=== PATIENT | male | born 1990 | race Hispanic/Latino ===

== ENCOUNTER 2019-09-16 22:56 | Emergency (ER) | payer OTHER ==
[~2019-09-16] VITALS: Ht 188 cm; Wt 127.0 kg
[2019-09-16] MEDS ORDERED: AMOXICILLIN500 MG PO (23:45)
[2019-09-16] MEDS ORDERED: CORTISPORIN-TC10 M1 RIGHT EAR (23:45)
[2019-09-16] MEDS ORDERED: NAPROSYN500 MG PO (23:45)
[2019-09-16] MEDS ORDERED: IBUPROFEN 600 MG TAB PO STA (23:53)
--- NOTE | 2019-09-16 23:59 | Emergency Department Note ---
History of Present Illnes History of Present Illness Chief Complaint: Eye, Ear, Nose, Throat, Dental History of Present Illness This is a 28 year old male . Historian: Patient Arrival Mode: Car Nurse Prn Required: No Onset (how long ago): day(s) (2 days no trauma no drainage, decreased hearing and pain no hx of DM no increased thist or polyuria) Location: right ear Quality: pain Severity: moderate Onset quality: gradual Timing of current episode: constant Progression: unchanged Chronicity: new (possible COVID 19 Exposure) Context: Denies recent illness, Denies recent surgery, Denies recent immobilization, Denies recent travel, Denies trauma/injury, Denies new medications, Denies hx of DVT/PE, Denies non-compliance w/ medications, Denies other Relieving factors: none Exacerbating factors: none Associated symptoms: Reports malaise; Denies denies other symptoms, Denies confusion, Denies chest pain, Denies cough, Denies diaphoresis, Denies fever/chills, Denies headaches, Denies loss of appetite, Denies nausea/vomiting, Denies rash, Denies seizure, Denies shortness of breath, Denies syncope, Denies weakness, Denies other Treatments prior to arrival: none Past Medical/Family History Physician Review I have reviewed the patient's past medical and family history. Any updates have been documented here. Past Medical History Recent Fever: Yes Clinical Suspicion of Infectio: Yes New/Unexplained Change in Ment: No Past Medical History: None Past Surgical History: None Social History Smoking Cessation: Never Smoker Counseling Performed: No Alcohol Use: Occasional Any Illegal Drug Use: No TB Exposure/Symptoms: No Physically hurt or threatened: No Family History Family history of heart diseas: No Other Last Tetanus: UNKNOWN Any Pre-Existing Lines (PICC,: No Is patient up to date on immun: No Last Flu: NO Last Pneumovax: NO Review of Systems Review of Systems Constitutional: Reports as per HPI, Reports malaise; Denies fever EENTM: Reports ear pain; Denies throat pain Respiratory: Denies chest congestion, Denies cough Review of other systems: All other systems negative Physical Exam Related Data Allergies: Coded Allergies: No Known Allergies (Unverified , 09/16/19) Triage Vital Signs Vital Signs Date Time Temp Pulse Resp B/P (MAP) Pulse Ox O2 Delivery O2 Flow Rate FiO2 09/16/19 23:31 100.6 99 17 161/93 99 Vital signs reviewed: Yes Physical Exam CONSTITUTIONAL Constitutional: Present well-developed, Present well-nourished HENT HENT: Present normocephalic HENT L/R: Present left TM normal, Present other (Right canal with increased swelling and redness TM dull) EYES Eyes: Reports conjunctivae normal NECK Neck: Present supple PULMONARY Pulmonary: Present breath sounds normal CARDIOVASCULAR Cardiovascular: Present regular rhythm GASTROINTESTINAL Abdominal: Present soft GENITOURINARY SKIN Skin: Present warm MUSCULOSKELETAL Musculoskeletal: Present ROM normal NEUROLOGICAL Neurological: Present alert PSYCHOLOGICAL Psychological: Present mood/affect normal Assessment & Plan Medical Decision Making MDM AOE, AOM, Dental pain, Mastoiditis, malignant otitis externa, TM rupture, cerumen impaction Assessment & Plan Final Impression: (1) Hypertension (2) Otitis externa (3) Otitis media Depart Disposition: HOME, SELF-CARE Last Vital Signs Date Time Temp Pulse Resp B/P (MAP) Pulse Ox O2 Delivery O2 Flow Rate FiO2 09/16/19 23:31 100.6 99 17 161/93 99 Home Meds Active Scripts Naproxen (NAPROSYN) 500 Mg Tablet, 500 MG PO BID for 7 Days, #14 TAB Prov:BRIDGET MICHAELS MD 09/16/19 Amoxicillin (AMOXICILLIN) 500 Mg Capsule, 1000 MG PO TID for 7 Days, #42 Prov:BRIDGET MICHAELS MD 09/16/19 Neomyc/Colist/Hydrocort/Thonzn (Cortisporin-Tc Ear Suspension) 10 Ml Drops.susp, 4 DROP RIGHT EAR QID for 7 Days, #1 BOTTLE Prov:BRIDGET MICHAELS MD 09/16/19 BRIDGET MICHAELS MD Sep 16, 2019 23:59
[2019-09-17] MEDS ORDERED: IBUPROFEN 200 MG TAB ONE
== END 2019-09-16 23:59 | disposition home or self-care (01) ==
LOC: FSED 22:56
DX: H60.91 Unspecified otitis externa, right ear (principal); H66.91 Otitis media, unspecified, right ear; I10 Essential (primary) hypertension
CPT/HCPCS: 99283

== ENCOUNTER 2022-01-30 18:16 | Emergency (ER) | payer SELFPAY ==
[~2022-01-30] VITALS: Ht 188 cm; Wt 127.0 kg
[~2022-01-30 18:16] MED LIST: AMOXICILLIN500 MG PO; CORTISPORIN-TC10 M1 RIGHT EAR; NAPROSYN500 MG PO
[2022-01-30 20:01] LABS: BASOPHILS % 0.3 % (0.0-1.0); EOSINOPHILS # (AUTO) 0.1 (0.0-0.4); HEMATOCRIT 47.7 % (38.2-49.6); HEMOGLOBIN 17.3 g/dL (14.0-18.0); LYMPHOCYTES # (AUTO) 1.5 (1.0-3.2); LYMPHOCYTES % 22.5 % (18.0-39.1); MEAN CORPUSCULAR HEMOGLOBIN 30.3 pg (28-32); MEAN CORPUSCULAR HGB CONC 36.3 g/dL (31-35); MEAN CORPUSCULAR VOLUME 83.5 fL (81-99); MONOCYTES # (AUTO) 0.6 (0.2-0.8); MONOCYTES % 8.4 % (4.4-11.3); NEUTROPHILS # (AUTO) 4.5 (2.1-6.9); NEUTROPHILS % 67.7 % (38.7-80.0); PLATELET COUNT 273 x10e3/uL (140-360); RED BLOOD COUNT 5.71 x10e6/uL (4.3-5.7); RED CELL DISTRIBUTION WIDTH 12.6 % (11.7-14.4)
[2022-01-30 20:28] LABS: INR 0.95; PROTHROMBIN TIME 13.6 seconds (11.9-14.5)
[2022-01-30 20:29] LABS: PARTIAL THROMBOPLASTIN TIME 30.9 seconds (23.8-35.5)
[2022-01-30 20:37] LABS: ALBUMIN 4.3 g/dL (3.5-5.0); ALBUMIN/GLOBULIN RATIO 1.1 (0.8-2.0); ANION GAP 15.5 mmol/L (8-16); CALCIUM 9.1 mg/dL (8.4-10.2); CREATININE, SERUM 1.03 mg/dL (0.72-1.25); POTASSIUM 3.5 mmol/L (3.5-5.1)
[2022-01-30] MEDS ORDERED: IOPAMIDOL 370 MG/ML 100 ML INFUS..BTL INJ ONE (21:22)
[2022-01-30] MEDS ORDERED: ANUSOL-HC25 MG RC (22:40)
== END 2022-01-30 23:09 | disposition home or self-care (01) ==
LOC: ER 18:24
DX: R19.7 Diarrhea, unspecified (principal); K62.5 Hemorrhage of anus and rectum; K64.8 Other hemorrhoids; R10.30 Lower abdominal pain, unspecified
CPT/HCPCS: 36415; 74174; 80053; 85025; 85610; 85730; 99284; Q9967